=== PATIENT | male | born 1960 | race Caucasian/White ===

== ENCOUNTER → 2017-12-04 | Outpatient (CLI) | payer OTHER ==
[~2017-12-04] MED LIST: AMOXICILLIN 50500 MG PO; CENTRUM SILVER1 EAC4 PO; CLARITIN10 MG PO; CLONAZEPAM 1 MG1 M1 PO; DEXAMETHASONE 22 M1 PO; DEXAMETHASONE 44 M1 PO; DEXAMETHASONE1 MG PO; FLONASE 0.05%50 MCG NASAL; GUAIFEN-CODEINE10 ML PO; KEPPRA 500 MG500 M1 PO; LASIX 20 MG TAB20 MG PO; MILK OF MA2400 MG/10 PO; MIRALAX17 GM PO; MOBIC15 MG PO; NAPROSYN500 MG PO; NEURONTIN 300300 M1 PO; NORCO 5-325 TA1 EACH PO; OXYCODONE HCL 55 MG PO; PERCOCET 10-321 EACH PO; SENOKOT-S TABL1 EACH PO; SYNTHROID100 MCG PO; TYLENOL EXTRA500 MG PO; VALIUM5 MG PO; ZANTAC 150MG T150 MG PO; ZOFRAN ODT4 MG DISSOLVE
== END ==
LOC: RAD 10:19
DX: M47.896 Other spondylosis, lumbar region (principal)

== ENCOUNTER → 2017-12-07 | Outpatient (CLI) | payer OTHER | LOC: MRI 11-06 10:47 → CAT 11:23 | DX: E04.1 Nontoxic single thyroid nodule (principal); M47.894 Other spondylosis, thoracic region ==

== ENCOUNTER 2017-12-28 11:34 | Inpatient (IN) | payer OTHER ==
[~2017-12-28] VITALS: Ht 175.3 cm; Wt 92.9 kg
--- NOTE | ~2017-12-28 | HC ---
[facility] [place] [address] CONSULTATION Name: ROSEMARY BUNDY Room #: 441-P [facility] IN M.R.#: [id number] Admission: 12/28/17 Attend Phys: Ed Kendrick MD Discharge: 12/29/17 Date of : 60 Report #: [id number] THIS REPORT FOR: //name// CC: Cecily Kendrick MD REASON FOR CONSULTATION: Abnormal scans with adenocarcinoma from a biopsy and a PSA of 0.4, but PSA weakly positive biopsy material. 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 He evidently had been feeling poorly since August and had a CAT scan on 12/07/2017 that showed extensive lymph nodes in the infra-carinal and bilateral hilar regions, liver masses and also extensive bony masses. The patient underwent a left iliac bone lesion biopsy on 12/11/2017, which revealed a moderately differentiated adenocarcinoma that was weakly positive for PSA and PSAP. The tumor was also negative for TTF1 and the comment was made that it is suggestive of a prosthetic origin and making lung cancer less likely. There was also positive CK-20, which is also seen in GI tract tumors. Reportedly, the patient had a colonoscopy about 16 months ago with removal of benign masses by Dr. Hendricks. We will try to get copies of these. REVIEW OF SYSTEMS: The patient has been having some various pains since about 08/2017. He has about a 30-pound unintentional weight loss. Negative headache. Swallowing troubles, thinking troubles, abdominal pain, bleeding in his urine or stool or rash. It does not look like he has had some diarrhea, but it sounds like he had some constipation and then had loose stools after that. FAMILY MEDICAL HISTORY: Mother had breast cancer in her 60s. Father from Parkinson's. One brother and one sister, no specific illnesses. One son with autism. SOCIAL HISTORY: He lives with his on the [facility], they are . The patient is a nonsmoker, had drank somewhat maybe a little bit heavy alcohol in the past, just occasional recently. No street drugs. PAST MEDICAL HISTORY: Past history is notable for right knee and foot surgery in the past. Also, thyroid surgery in the past and hypothyroidism. MEDICATIONS PRIOR TO ADMISSION: Included clonazepam, levothyroxine, diazepam and hydrocodone. LABORATORY DATA: CAT scan on 12/07/2017 was notable for their description of no evidence of cervical adenopathy. The left lower lobe is probably compared to the right, extensive infra-carinal and bilateral hilar adenopathy with metastatic malignant mass was present in the right lower lobe. Left lung does [address] [address] CONSULTATION Name: ROSEMARY BUNDY Room #: 441-P DIS IN M.R.#: [id number] Admission: 12/28/17 Attend Phys: Ed Kendrick MD Discharge: 12/29/17 Date of : 60 Report #: [id number] not show any disease. No significant pleural fluid. Numerous hepatic metastasis throughout the right lobe of the liver, extensive bony masses involving the right inferior pubic ramus and left and right iliac crest regions, consistent with bone metastasis. Lab test notable for a BUN of 19, creatinine of 0.9. Total bilirubin 0.6, calcium 12.3, alkaline phosphatase 144 and ALT 14. Albumin 2.3. Coags back in November were normal, including PT and aPTT. WBC 10.2, hemoglobin 10.5 with an MCV of 79.9, RDW 15.3 and platelets of 349,000. Ferritin and iron studies are pending. PSA drawn on 12/28/2017 was 0.4. ASSESSMENT AND PLAN: 1. Adenocarcinoma from a bone biopsy with a weakly positive PS staining and CT showing multiple bone metastasis, but also liver metastasis, with a PSA of 0.4. This seems to represent a poorly differentiated possible prostate cancer. We will talk to pathology. May consider liver biopsy for non-decalcified type tissue to see him and get a better management to make sure this is not a neuroendocrine differentiation given the severe low PSA, but then also liver mets and may need to consider chemotherapy instead of antihormone therapy. We will get additional information. We will also try to get information from Dr. Hendricks to make sure there is no concern about a colonic primary. 2. Hypercalcemia. We will give Zometa 4 mg and increase IV fluids at 200 mL an hour. We will follow serial calciums. We will also place O2 sat monitor. 3. Mental status changes, likely hypercalcemia. We will also check MRI of the head. 4. Anemia with microcytosis. Check iron and ferritin levels and get records from Dr. Hendricks. 5. History of colonoscopy with masses removed, reported benign, but we will get reports from Dr. Hendricks. We will follow with you. <ELECTRONICALLY SIGNED> By: Ariel Estrada MD 12/29/171999 0915 1028 Ariel Estrada MD /nt
[~2017-12-28 11:34] MED LIST changes: -CENTRUM SILVER1 EAC4 PO; -CLARITIN10 MG PO; -DEXAMETHASONE 22 M1 PO; -DEXAMETHASONE 44 M1 PO; -DEXAMETHASONE1 MG PO; -FLONASE 0.05%50 MCG NASAL; -KEPPRA 500 MG500 M1 PO; -LASIX 20 MG TAB20 MG PO; -MILK OF MA2400 MG/10 PO; -MIRALAX17 GM PO; -NEURONTIN 300300 M1 PO; -OXYCODONE HCL 55 MG PO; -PERCOCET 10-321 EACH PO; -SENOKOT-S TABL1 EACH PO; -TYLENOL EXTRA500 MG PO; -ZANTAC 150MG T150 MG PO; -ZOFRAN ODT4 MG DISSOLVE
[2017-12-28 12:05] VITALS: BP 124/72
[2017-12-28 12:40] LABS: HEMOGLOBIN 10.5 gm/dL (14.0-18.0); MCH 25.5 pg (26.0-34.0); MCHC 31.9 g/dL (28.0-37.0); MCV 79.9 fL (80.0-100.0); RBC 4.13 mil/uL (4.50-6.00); RDW 15.3 % (10.5-14.5); WBC 10.2 thou/uL (4.0-11.0)
[2017-12-28 12:52] LABS: ALBUMIN 2.3 g/dL (3.4-5.0); CREATININE 0.9 mg/dL (0.7-1.3); POTASSIUM 3.5 mmol/L (3.5-5.1); TOTAL BILIRUBIN 0.6 mg/dL (<0.1-1.0); TOTAL PROTEIN 7.6 g/dL (6.4-8.2)
[2017-12-28 13:00] LABS: CALCIUM 12.3 mg/dL (8.5-10.1)
[2017-12-28 16:00] VITALS: BP 109/54
[2017-12-28 19:54] VITALS: BP 108/55
[2017-12-29 00:52] VITALS: BP 126/64
[2017-12-29 03:48] VITALS: BP 117/65
[2017-12-29 08:01] VITALS: BP 122/72
[2017-12-29 09:15] LABS: HEMATOCRIT 31.3 % (42.0-52.0); HEMOGLOBIN 10.1 gm/dL (14.0-18.0); MCH 25.7 pg (26.0-34.0); MCHC 32.2 g/dL (28.0-37.0); MCV 79.7 fL (80.0-100.0); RBC 3.93 mil/uL (4.50-6.00); RDW 15.5 % (10.5-14.5); WBC 8.2 thou/uL (4.0-11.0)
[2017-12-29 09:26] LABS: CALCIUM 10.7 mg/dL (8.5-10.1); CREATININE 0.8 mg/dL (0.7-1.3)
[2017-12-29 09:31] LABS: % SATURATION 13 % (20-39); IRON 20 ug/dL (65-175); TIBC 149 ug/dL (250-450)
== END 2017-12-29 16:30 | disposition short-term general hospital (02) | DRG 543 ==
LOC: 4S 11:34 → 4E 11:34 → 4S 11:57
PROVIDERS: Family Medicine; Internal Medicine Hematology & Oncology
DX: C41.9 Malignant neoplasm of bone and articular cartilage, unspecified (principal); N17.9 Acute kidney failure, unspecified; C78.7 Secondary malignant neoplasm of liver and intrahepatic bile duct; C79.82 Secondary malignant neoplasm of genital organs; E83.52 Hypercalcemia; D50.9 Iron deficiency anemia, unspecified; E03.9 Hypothyroidism, unspecified; F41.9 Anxiety disorder, unspecified; F32.9 Major depressive disorder, single episode, unspecified; Z80.3 Family history of malignant neoplasm of breast; Z81.8 Family history of other mental and behavioral disorders; Z79.899 Other long term (current) drug therapy
CPT/HCPCS: 10102

== ENCOUNTER 2018-01-13 14:58 | Inpatient (IN) | payer OTHER ==
[~2018-01-13] VITALS: Ht 175.3 cm; Wt 84.1 kg
--- NOTE | ~2018-01-13 | HC ---
[facility] [place] [address] CONSULTATION Name: ROSEMARY BUNDY Room #: 506-1 ADM IN M.R.#: [id number] Admission: 01/13/18 Attend Phys: Vasiliy Arzate MD Discharge: Date of : 60 Report #: [id number] THIS REPORT FOR: //name// CC: Vasiliy Kendrick DATE OF SERVICE: 01/16/2018 NEUROBEHAVIORAL STATUS EXAM ATTENDING PHYSICIAN: Vasiliy Arzate M.D. LOOPING MACHINE OPERATOR: Ed Bah, PhD CLINICAL PRESENTATION: The patient is a 57-year-old male admitted to the [facility] Rehabilitation Unit for comprehensive inpatient rehabilitation program to improve functional mobility, activities of daily living and self-care and mental status secondary to deficits from a metastatic intracranial hemorrhagic lesion. He is status post craniotomy with a right parietal resection on 01/08/2018. He was found to have multiple brain lesions. His initial assessment on rehab includes gait ataxia secondary to central nervous system lesion, cognitive impairment, acute postoperative pain, hypothyroidism, liver, colon and prostate masses and metastatic carcinoma to the bone. A complete description of his medical condition and history can be found in his medical record. Neuropsychological consultation was requested to assist in assessment of cognitive and emotional status and to provide recommendations and services. Prior to this most recent medical event, he reports living with the assistance of his family. He has been living with his mother and have a brother and sister that live nearby. The patient is with one child. The child lives in [place] with his ex-. The patient has a master's degree in education. 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 TECHNIQUES UTILIZED: Clinical interview, review of medical records, staff consultation and behavioral observation, mini mental status exam 2 standard version, and calibrated ideational fluency assessment (letter and category) and brief abstract reasoning test. EXAMINATION FINDINGS: The patient was alert and cooperative with the assessment. He presents with decreased processing speed, but was able to describe recent events leading to his hospitalization. He reports symptoms to include difficulty with memory and word finding. Longstanding symptoms of anxiety are reported. He reports having been treated for generalized anxiety disorder with the use of clonazepam. Past counseling is also reported. He does [address] [address] CONSULTATION Name: ROSEMARY BUNDY Room #: 506-1 [facility] IN M.R.#: [id number] Admission: 01/13/18 Attend Phys: Vasiliy Arzate MD Discharge: Date of : 60 Report #: [id number] not report difficulty with sleep, appetite or subjective depression. Difficulty with word retrieval is also described. His performance on the MMSE 2 brief version was extremely low with a raw score of 12/16 and a T score of 20. He was 3/3 for initial registration, 3/5 for orientation to time, 4/[address] and 2/3 for immediate recall of 3 items after a brief time delay and distraction. His performance improved on the MMSE 2 standard version to a raw score of 26/30, which is a T score of 38, which is at the 12th percentile. Mild impairment is suggested in general based on his performance on the MMSE 2 standard version. Performance in verbal fluency suggest deficits that are in the moderate to severe range. Letter fluency was at the 4th percentile with a raw score of 16 and a T score of 32. Mild to moderate deficits are suggested in letter fluency. Category fluency is extremely low with a raw score of 22 and a T score of 20, which is less than 1%. Overall, total fluency is raw score of 38, T score of 23 and percentile rank of less than 1. The patient was 7/8 on a brief abstract reasoning test. He presents with delayed processing and variability in cognitive functioning with impairment in executive functioning and decreased insight. For example, during a clock drawing test, the patient used a combination of and regular time for numbers and had difficulty with hand placement. His performance on the assessment suggests moderate deficits in neurocognitive functioning. Deficits will affect immediate recall, attention and concentration and executive functioning. 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 Generalized anxiety disorder. RECOMMENDATIONS: Continued support and encouragement during his rehabilitation program. He may benefit from the use of a memory/orientation notebook to assist in compensation strategies for orientation, immediate recall and higher level planning and problem solving. The use of relaxation techniques will also be of benefit to assist in the management of anxiety. 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 The patient will likely require at least a short-term disability prior to return to employment. Follow up neuropsychological testing is recommended following discharge. [address] [address] CONSULTATION Name: ROSEMARY BUNDY Room #: 506-1 ADM IN M.R.#: [id number] Admission: 01/13/18 Attend Phys: Vasiliy Arzate MD Discharge: Date of : 60 Report #: [id number] Thank you very much for allowing me to provide the consultation on this patient. <ELECTRONICALLY SIGNED> By: Ed Bah, PhD 01/18/18 1824 1459 1855 Ed Bah, PhD /nt
--- NOTE | ~2018-01-13 | H ---
[facility] [place] [place] [address] HISTORY AND PHYSICAL Name: ROSEMARY BUNDY Room #: 506-1 ADM IN M.R.#: [id number] Admission: 01/13/18 Attend Phys: Ana Arzate MD Discharge: Date of : 60 Report #: [id number] THIS REPORT FOR: //name// CC: ANA Kendrick DATE OF SERVICE: 01/14/2018 Note, I am covering for Dr. Ana Arzate and therefore, completing this history and physical for him. ADMITTING PHYSICIAN: Dr. Ana Arzate. CHIEF COMPLAINT: Mobility and self-care deficits due to hemorrhagic intracranial metastases. REFERRING PHYSICIAN: Dr. Kadeem Mendoza. PRIMARY CARE PHYSICIAN: Dr. Ed Kendrick. HISTORY OF PRESENT ILLNESS: The patient is a very pleasant 57-year-old right hand dominant male with a history of colon masses, status post resection who was transferred to the [facility] for evaluation of diffuse metastatic lesions. Neurosurgery was consulted to address metastatic intracranial lesions. The patient had a history of bone pain and mild gait unsteadiness, which started in July 2017. A workup in November 2017 revealed extensive hilar adenopathy and bony lesions concerning for metastasis. A CT-guided biopsy was done, which showed moderately differentiated carcinoma weakly positive for PSA. The patient was seen by his oncologist on 12/28/2017 and admitted for back pain and further workup. An MRI was done, which was concerning for multiple brain metastases, most notably in the right parietal lobe and right cerebellum with associated vasogenic edema and hemorrhage. He underwent surgical treatment at the [facility]. He will need to follow up with Dr. Burton in approximately 2 weeks according to their notes. In addition to the above diagnoses, he has lung metastasis, multiple intrahepatic metastasis and multiple bony metastases. The primary ____ is unclear. It is felt to be possibly prostate versus GI versus lung according to records. There is concern for possible palliative radiation and XRT of the spine lesions following Neurosurgery. This has not been planned as of yet. He is on Decadron and Keppra. [address] [address] HISTORY AND PHYSICAL Name: ROSEMARY BUNDY Room #: 506-1 ADM IN M.R.#: [id number] Admission: 01/13/18 Attend Phys: Ana Arzate MD Discharge: Date of : 60 Report #: [id number] Additional issues postoperatively include hypercalcemia, which resolved; anemia of chronic disease, history of an anal mass and ulcer, status post resection is also noted. Due to problems with weakness and pain as well as impaired mobility, it was determined that an inpatient rehabilitation stay would be needed. He was therefore transferred to rehabilitation unit at [facility] for further medical oversight and comprehensive therapies. PAST MEDICAL HISTORY: As above, also pertinent for acute blood loss anemia, impaired cognition, hypothyroidism and constipation. 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 He lives in a house with 1-2 steps to enter and exit. He states that his mother is there to assist him. FUNCTIONAL HISTORY: Prior to admission, he states that he was walking with a rolling walker following a fall that he had. He states that he still drives. FAMILY HISTORY: Positive for breast cancer in his mother and Parkinson's in his father. PAST SURGICAL HISTORY: Knee surgery and thyroid surgery. REVIEW OF SYSTEMS: He denies chest pain, shortness of breath, fevers, chills, lymphadenopathy, skin rashes, vision changes, hearing difficulties, difficulties with sense of smell, difficulty with swallowing, difficulty with communicating. There is a note about cognitive impairment, which he does not admit to. Otherwise, the remainder of a 14-point review of systems is negative except for what was stated above. PHYSICAL EXAMINATION: GENERAL: In no acute distress, well developed, well nourished, afebrile. He was sitting up at the edge of the bed with his therapist when I entered the room. VITAL SIGNS: Stable. CARDIOVASCULAR: S1, S2. LUNGS: Clear to auscultation. ABDOMEN: Soft, nontender, nondistended, positive bowel sounds. EXTREMITIES: Calves are nontender. LYMPHATICS: No cervical adenopathy. MUSCULOSKELETAL: Functionally, he has 4+/5 strength in all 4 extremities with full range of motion. Tone within normal limits. No muscle atrophy identified. NEUROLOGIC: Coordination is fair. Muscle stretch reflexes are 1/4 and symmetric. He has impaired safety awareness. Balance is fair and he is [facility] [address] [place] [address] HISTORY AND PHYSICAL Name: ROSEMARY BUNDY Room #: 506-1 ADM IN M.R.#: [id number] Admission: 01/13/18 Attend Phys: Ana Arzate MD Discharge: Date of : 60 Report #: [id number] unsteady with provocation. PSYCHIATRIC: He is pleasant and cooperative with the examination. Cognition appears to be impaired. IMPRESSION: Mobility and self-care deficits in a 57-year-old right hand dominant male secondary to: 1. Metastatic intracranial hemorrhagic lesion, status post craniotomy at the [facility], multiple brain lesions, right parietal craniotomy resection on 01/08/2018. 2. Gait ataxia secondary to central nervous system lesion, currently at a moderate assist level. 3. Cognitive impairment due to intracranial lesions. 4. Acute postoperative pain. 5. Hypothyroidism. 6. Liver, colon and prostate masses. 7. Metastatic carcinoma to bone. PLAN: 1. Admit to the rehabilitation unit for comprehensive therapies. 2. Discussed the rehabilitation program in detail with him and his therapy team and all are in agreement for rehabilitation admission. 3. Consultation to hospitalist for medical management. 4. Consultation with Ed Bah, PhD for neuropsychology due to cognitive impairments and coping issues. 5. Physical therapy, occupational therapy and speech therapy. 6. Please see the plan of care and post-admission physician evaluation for further details of rehabilitation care plan. 7. A post-admission physician evaluation has been completed. The patient's preadmission screening was reviewed in its entirety by this examiner. Current clinical status is supported by the information contained within. The patient is an appropriate candidate to undergo a comprehensive inpatient rehabilitation program consisting of daily physical therapy, occupational therapy and speech therapy 3 hours a day for at least 5 days a week. Furthermore, nothing has changed since the preadmission screen was completed to suggest that the patient would not be able to tolerate or benefit from the rehabilitation program. It is my opinion that inpatient rehabilitation rather than care home is a more appropriate setting for the patient due to multiple medical needs requiring comprehensive followup care. The patient is at risk of clinical complications during participation in rehabilitation due to the following adverse medical conditions. 1. Metastatic carcinoma to bone. 2. Intracranial hemorrhagic lesions, status post craniotomy. 3. Risk for seizures. 4. Carcinoma of the lung and prostate. 5. My plan to manage these conditions, which could impact his ability to [facility] [address] [place] [address] HISTORY AND PHYSICAL Name: ROSEMARY BUNDY Room #: 506-1 ADM IN M.R.#: [id number] Admission: 01/13/18 Attend Phys: Ana Arzate MD Discharge: Date of : 60 Report #: [id number] participate in rehabilitation, to consult internal medicine and neuropsychology to closely monitor him during his rehabilitation course. INDIVIDUAL OVERALL PLAN OF CARE: Summarization of findings, the patient is receiving inpatient rehabilitation due to the following functional impairments: 1. Ataxia. 2. Cognitive impairment. 3. Hemorrhagic intracranial metastasis, status post parietal craniotomy. 4. Impaired endurance and ADLs. Identified interventions include physical therapy, occupational therapy and speech therapy to address mobility, self-care deficits, communication, cognitive and swallowing impairments. Physical medicine and rehabilitation will provide management of this rehabilitation care plan. Internal medicine will provide care for multiple medical issues. Neuropsychology will evaluate for cognitive impairments and coping. Rehabilitation nursing care will be available 24 hours a day for care needs and social welfare administrator will be helpful for discharge planning and medical equipment needs. Dietitian consultation for nutritional purposes will be needed. Estimated length of stay is approximately 10-14 days. Anticipated functional outcome is modified independent with mobility and self-care skills. This is a realistic goal based on his previous level of function and progress thus far in therapies. ANTICIPATED DISCHARGE DESTINATION: Home with his mother. He will likely need home health services at that time. Medical prognosis is fair. He will continue to receive internal medicine followup. Anticipated therapies, physical therapy, occupational therapy and speech therapy 3 hours a day 5 days a week for an anticipated duration of 10-14 days. SUMMARIZATION OF TREATMENT PLAN: He will continue to receive an inpatient rehabilitation program as outlined above in an effort to improve his overall function and return home at a modified independent level within 10-14 days. <ELECTRONICALLY SIGNED> By: Amandeep Germain DO 01/14/18 1714 0937 1016 Amandeep Germain DO /nt
[2018-01-13] MEDS ORDERED: DEXAMETHASONE 44 M1 PO (15:39)
[2018-01-13] MEDS ORDERED: DEXAMETHASONE 22 M1 PO (15:42)
[2018-01-13] MEDS ORDERED: DEXAMETHASONE1 MG PO (15:44)
[2018-01-13] MEDS ORDERED: KEPPRA 500 MG500 M1 PO (15:45)
[2018-01-13] MEDS ORDERED: MILK OF MA2400 MG/10 PO (15:46)
[2018-01-13] MEDS ORDERED: SENOKOT-S TABL1 EACH PO (15:48)
[2018-01-13] MEDS ORDERED: PERCOCET 10-321 EACH PO (15:50)
[2018-01-13] MEDS ORDERED: FLONASE 0.05%50 MCG NASAL (15:51)
[2018-01-13] MEDS ORDERED: CENTRUM SILVER1 EAC4 PO (15:53)
[2018-01-13] MEDS ORDERED: CLARITIN10 MG PO (15:55)
[2018-01-13] MEDS ORDERED: ZANTAC 150MG T150 MG PO (15:57)
[2018-01-13 17:00] VITALS: BP 98/58
[2018-01-13 19:20] VITALS: BP 103/58
[2018-01-14 07:20] LABS: HEMATOCRIT 34.5 % (42.0-52.0); HEMOGLOBIN 10.8 gm/dL (14.0-18.0); MCH 24.9 pg (26.0-34.0); MCHC 31.4 g/dL (28.0-37.0); MCV 79.2 fL (80.0-100.0); RBC 4.35 mil/uL (4.50-6.00); WBC 12.3 thou/uL (4.0-11.0)
[2018-01-14 07:35] LABS: CREATININE 0.7 mg/dL (0.7-1.3); POTASSIUM 3.8 mmol/L (3.5-5.1)
[2018-01-14 08:00] VITALS: BP 104/61
[2018-01-14 19:52] VITALS: BP 103/66
[2018-01-15 10:15] VITALS: BP 109/58
[2018-01-15 19:51] VITALS: BP 103/52
[2018-01-16 08:30] VITALS: BP 93/58
[2018-01-16 19:20] VITALS: BP 101/64
[2018-01-17 10:13] VITALS: BP 104/47
[2018-01-17 19:15] VITALS: BP 113/69
[2018-01-18 07:25] VITALS: BP 109/61
[2018-01-18 19:59] VITALS: BP 113/56
[2018-01-19 07:17] VITALS: BP 110/67
[2018-01-19 19:45] VITALS: BP 110/61
[2018-01-20 08:09] VITALS: BP 99/60
[2018-01-20 19:30] VITALS: BP 104/63
[2018-01-21 07:45] VITALS: BP 105/55
[2018-01-21 20:04] VITALS: BP 99/53
[2018-01-21 20:45] VITALS: BP 115/62
[2018-01-22 07:55] VITALS: BP 96/54
[2018-01-22 20:02] VITALS: BP 100/54
[2018-01-23 08:26] VITALS: BP 99/60
[2018-01-23 19:58] VITALS: BP 97/59
[2018-01-24 07:29] VITALS: BP 100/55
[2018-01-24 19:50] VITALS: BP 102/58
[2018-01-25 07:30] VITALS: BP 103/58
[2018-01-25 15:56] VITALS: BP 103/58
[2018-01-25 19:15] VITALS: BP 97/59
[2018-01-26 07:28] VITALS: BP 104/65
[2018-01-26] MEDS ORDERED: KEPPRA 500 MG500 M1 PO (08:05)
[2018-01-26 10:37] VITALS: BP 103/58
== END 2018-01-26 14:43 | disposition home health service (06) | DRG 55 ==
PROVIDERS: Physical Medicine & Rehabilitation
DX: C79.31 Secondary malignant neoplasm of brain (principal); C79.51 Secondary malignant neoplasm of bone; C78.00 Secondary malignant neoplasm of unspecified lung; C78.7 Secondary malignant neoplasm of liver and intrahepatic bile duct; C78.5 Secondary malignant neoplasm of large intestine and rectum; C79.82 Secondary malignant neoplasm of genital organs; D62 Acute posthemorrhagic anemia; R27.0 Ataxia, unspecified; F41.1 Generalized anxiety disorder; R41.9 Unspecified symptoms and signs involving cognitive functions and awareness; D63.8 Anemia in other chronic diseases classified elsewhere; K59.00 Constipation, unspecified; G89.18 Other acute postprocedural pain; F32.9 Major depressive disorder, single episode, unspecified; E89.0 Postprocedural hypothyroidism; R53.81 Other malaise; Z82.0 Family history of epilepsy and other diseases of the nervous system; Z80.3 Family history of malignant neoplasm of breast
CPT/HCPCS: 10112

== ENCOUNTER 2018-02-23 11:57 | Emergency (ER) | payer OTHER ==
[~2018-02-23] VITALS: Ht 172.7 cm; Wt 81.7 kg
--- NOTE | ~2018-02-23 | EKG ---
[place] [address] [facility] [place] [address] ELECTROCARDIOGRAM REPORT Name: ROSEMARY BUNDY Room #: DEP HOWARD Cutler#: [id number] Admission: 02/23/18 Attend Phys: Discharge: 02/23/18 Date of : 60 Report #: [id number] THIS REPORT FOR: //name// [facility] ED Test Date: 2018-02-23 Test Time: 13:31:50 Pat Name: ROSEMARY BUNDY Department: Room: Gender: M Risk Management Consultant: JENSENIA : 1960 Requested By: Julian Mansfield Order Number: [id number] MD: Dameon Shultz Measurements Intervals [place] Rate: 102 P: 61 WA: 179 QRS: 41 QRSD: 94 T: 27 QT: 335 QTc: 437 Interpretive Statements Sinus tachycardia Otherwise no significant abnormality No previous ECG available for comparison Electronically Signed On 02-24-2018 8:40:04 CDT by Dameon Shultz [email or web address] <ELECTRONICALLY SIGNED> By: Dameon Shultz MD, [facility] 02/24/18 0840 1331 1331 Dameon Shultz MD, FACC /EPI
[~2018-02-23 11:57] MED LIST changes: +CENTRUM SILVER1 EAC4 PO; +CLARITIN10 MG PO; +DEXAMETHASONE 22 M1 PO; +DEXAMETHASONE 44 M1 PO; +DEXAMETHASONE1 MG PO; +FLONASE 0.05%50 MCG NASAL; +KEPPRA 500 MG500 M1 PO; +MILK OF MA2400 MG/10 PO; +PERCOCET 10-321 EACH PO; +SENOKOT-S TABL1 EACH PO; +ZANTAC 150MG T150 MG PO
[2018-02-23 12:01] VITALS: BP 103/69
[2018-02-23 12:41] LABS: CREATININE 0.6 mg/dL (0.7-1.3); POTASSIUM 4.9 mmol/L (3.5-5.1)
[2018-02-23 13:27] LABS: APTT 22.2 Seconds (24.5-32.8); INR 1.2; PROTIME 11.8 Seconds (9.3-11.4)
[2018-02-23 14:12] VITALS: BP 103/69
[2018-02-23 14:17] LABS: URINE BLOOD NEGATIVE (Negative); URINE CLARITY CLEAR; URINE COLOR YELLOW; URINE GLUCOSE-RANDOM* NEGATIVE (Negative); URINE KETONES TRACE (Negative); URINE LEUKOCYTES-REFLEX NEGATIVE (Negative); URINE NITRITE-REFLEX NEGATIVE (Negative); URINE PROTEIN (DIPSTICK) NEGATIVE (Negative); URINE SPECIFIC GRAVITY >= 1.030 (1.005-1.035); URINE UROBILINOGEN 0.2 E.U./dl (0.2-1.0)
[2018-02-23 14:20] LABS: ICTOTEST (BILI CONFIRMATORY) Negative (Negative); URINE BILIRUBIN NEGATIVE (Negative)
[2018-02-23 14:35] LABS: ABSOLUTE NEUTROPHILS 10.9 thou/uL (1.4-8.2); BASOPHILS 0.7 % (0.0-2.0); HEMATOCRIT 30.3 % (42.0-52.0); HEMOGLOBIN 9.6 gm/dL (14.0-18.0); LYMPHOCYTES 4.1 % (24.0-44.0); MCH 25.2 pg (26.0-34.0); MCHC 31.9 g/dL (28.0-37.0); MCV 79.2 fL (80.0-100.0); MONOCYTES 8.8 % (1.0-8.0); PLATELET COUNT 423 thou/uL (150-400); POLYS 86.4 % (36.0-66.0); RBC 3.82 mil/uL (4.50-6.00); RDW 19.9 % (10.5-14.5); WBC 12.6 thou/uL (4.0-11.0)
[2018-02-23 16:32] LABS: MICROCYTES 2+; POLYCHROMASIA 1+; SCHISTOCYTES OCCASIONAL; TEARDROPS 1+
[2018-02-23 17:00] VITALS: BP 111/65
== END 2018-02-23 17:00 | disposition short-term general hospital (02) ==
LOC: ER 11:57 → EROBS 14:03
PROVIDERS: Physician Assistant
DX: S72.8X2A Other fracture of left femur, initial encounter for closed fracture (principal); C64.9 Malignant neoplasm of unspecified kidney, except renal pelvis; C79.31 Secondary malignant neoplasm of brain; E03.9 Hypothyroidism, unspecified; F41.9 Anxiety disorder, unspecified; F32.9 Major depressive disorder, single episode, unspecified; W18.39XA Other fall on same level, initial encounter; Y93.89 Activity, other specified; Y92.89 Other specified places as the place of occurrence of the external cause; Y99.8 Other external cause status

== ENCOUNTER 2018-03-23 19:53 | Inpatient (IN) | payer OTHER ==
[~2018-03-23] VITALS: Ht 177.8 cm; Wt 76.7 kg
--- NOTE | ~2018-03-23 | HC ---
[facility] [place] [address] CONSULTATION Name: ROSEMARY BUNDY Room #: 451-P ADM IN M.R.#: [id number] Admission: 03/23/18 Attend Phys: Vasiliy Colunga MD Discharge: Date of : 60 Report #: [id number] THIS REPORT FOR: //name// CC: Lenny Vazquez MD REASON FOR CONSULTATION: Metastatic renal cell. HISTORY OF PRESENT ILLNESS: The patient is a 58-year-old gentleman from the [place] area who was diagnosed with metastatic renal cancer after a bone biopsy on 12/11/2017. This was mostly consistent with metastatic kidney cancer. Unfortunately, he also had brain mets. He did have a craniotomy on 01/08/2018 with removal of a large lesion but there is still one that has not been treated. The patient was recently at a rehab facility trying to get stronger, but has had further decline. Here, he was noted to have a fairly stable CT of the head. He has also had a calcium of 11.3, albumin below 2. At this time, he denies fevers or chills. He describes a general malaise and tired feeling. He denies any nausea. He denies any constipation or diarrhea, any dysuria. He stated he had some leg swelling. He does not have good insight, appears to be a poor historian, but this may be related to his hypercalcemia. He is noted to have skin sores on his report, but he does not really seem to be that much aware of them. PAST MEDICAL HISTORY: Past history is notable for the metastatic kidney cancer diagnosed in November, status post craniotomy for the large lesion in 12/2017. He has a known other lesion that has not been treated. He had been seen by Dr. Lenny Mcrae who specializes in urologic Oncology. About 2 weeks ago, he did not think that the patient was strong enough to tolerate any aggressive or any therapy at this time. He had suggested hospice. The patient also has a history of hypothyroidism, hemorrhoids, sleep disorder. PAST MEDICAL HISTORY: He has a history of tonsillectomy, appendectomy, thyroidectomy. SOCIAL HISTORY: He is , nonsmoker, drank some alcohol in the past. No street drugs. MEDICATIONS: At this time in the hospital currently include levothyroxine 100 mcg daily, levetiracetam 500 mg b.i.d., Lovenox 40 mg at bedtime, gabapentin 300 t.i.d., levofloxacin daily, Percocet p.r.n., Zofran p.r.n., Tylenol p.r.n. He did get a dose of Zometa yesterday. PHYSICAL EXAMINATION: GENERAL: The patient appears his stated age. [address] [address] CONSULTATION Name: ROSEMARY BUNDY Room #: 451-P [facility] IN M.R.#: [id number] Admission: 03/23/18 Attend Phys: Vasiliy Colunga MD Discharge: Date of : 60 Report #: [id number] VITAL SIGNS: Height is 5 feet 10 inches, which is 177.8 cm. Weight is 169 pounds or 76.7 kilograms. Blood pressure is 80/48, respirations 20, O2 sat 95%, pulse 88, temperature currently 97.5, it had been 100.2. MOOD: The patient is pleasant and conversant. NEUROLOGIC: Face appears symmetrical, though his speech and thought pattern appear to be slow. He is moving his arms. LYMPHATICS: No enlarged lymph nodes in the supraclavicular, cervical, or axillary region. HEART: Regular rate. LUNGS: Anteriorly is clear with symmetric unlabored respiration. ABDOMEN: Slightly obese. No definite masses, nontender. EXTREMITIES: He does have some 1-2 mm edema at the mid casper. Right leg is also slightly larger than the left. LABORATORY DATA: Here show a BUN of 17, creatinine of 0.5, calcium yesterday was 11.3 before the Zometa. Alkaline phosphatase was 208, albumin 1.3. White count 11.7, hemoglobin 7.2, MCV 80, platelets are 273. UA was unremarkable. DISCUSSION: Discussed with the patient and also had a chance to call the patient's mother to discuss his situation. I think he has had further decline. I told I think it would be dangerous to fully anticoagulate the patient because of his DVT, because of his brain mets that has been untreated. I think it is reasonable to continue the Lovenox. I am not sure that it would be a walker idea for an IVC filter given the patient's overall generalized condition that they wished we could. I think it would be appropriate to consider hospice. They have had discussions but she had more questions. I have suggested that she call her daughter and asked them to call Jonnie, the patient's nurse and see what time they can come up and visit with the social work faculty member today. ASSESSMENT AND PLAN: 1. Metastatic kidney cancer with CT chest suggesting some progression. The patient as aforementioned is too weak to consider active therapy, would suggest consideration of hospice as my partner had suggested. 2. Hypercalcemia. Note, the patient received Zometa yesterday. We will repeat calcium today. 3. Brain mets, untreated, could bleed if given anticoagulation. 4. Right leg DVT. I would be concerned about full-dose anticoagulation, could consider IVC filter, but given question about direction of care and for considering hospice, I probably would not put the patient through the procedure. The patient's mother made that same comment. 5. Anemia, stable. Continue monitoring. 6. Fever. The patient is on levofloxacin. 7. Skin ulceration, has been seen by wound care management. I would use gentle debridement, I want to be careful given the patient's right DVT. 8. Pain. Continue pain medications as needed. 9. Seizure prophylaxis, levetiracetam. [facility] [address] [place] [address] CONSULTATION Name: ROSEMARY BUNDY Room #: 451-P ADM IN M.R.#: [id number] Admission: 03/23/18 Attend Phys: Vasiliy Colunga MD Discharge: Date of : 60 Report #: [id number] 10. Hypothyroid, continues replacement. 11. Prognosis is very poor. The patient probably still has between 1 and 2 months left. I am aware that he is going to begin spiraling fairly quickly given his general debility and spending more time in bed. <ELECTRONICALLY SIGNED> By: Ariel Estrada MD 03/26/18 0707 [id number] Ariel Estrada MD /nt
--- NOTE | ~2018-03-23 | HC ---
[facility] [place] [address] CONSULTATION Name: ROSEMARY BUNDY Room #: 451-P [facility] IN M.R.#: [id number] Admission: 03/23/18 Attend Phys: Vasiliy Colunga MD Discharge: 03/26/18 Date of : 60 Report #: [id number] THIS REPORT FOR: //name// CC: Vasiliy Colunga DATE OF SERVICE: 03/24/2018 CHIEF COMPLAINT: Sacral pressure ulceration. HISTORY OF PRESENT ILLNESS: This is a 58-year-old white male patient who was admitted to the hospital with weakness. He has a history of metastatic renal cell carcinoma, was admitted from [facility] for weakness and hypotension. The patient apparently has had a recent pathological left femur fracture due to bony metastases and had open reduction and internal fixation approximately one month ago. He has had poor ability to comply with any rehab. He according to his admission notes from primary care, there apparently were no active plans for active treatment for his cancer. He has not opted for palliative care or hospice type care at this time. He was noted to have a pressure ulcer to his sacrum and I have been asked to see him with regard to ongoing wound care. PAST MEDICAL HISTORY: Positive for the metastatic renal cell carcinoma. He has had previous partial thyroidectomy, has anxiety and depression as well as the recent pathological left femur fracture. SOCIAL HISTORY: No known history of alcohol or tobacco use. ALLERGIES: None. MEDICATIONS: Include Synthroid, MiraLax, Neurontin, oxycodone, Tylenol, multivitamin, Claritin and Zantac. REVIEW OF SYSTEMS: CONSTITUTIONAL: The patient denies fever, chills or weight loss. NEUROLOGICAL: The patient complains of generalized weakness. Denies focal weakness, numbness or tingling. EYES: The patient denies visual changes, redness or drainage. ENT: The patient denies earache, nasal drainage or sore throat. CARDIOVASCULAR: The patient denies chest pain or palpitations, diaphoresis. PULMONARY: The patient denies cough or shortness of breath. GASTROINTESTINAL: The patient denies nausea, abdominal pain. ORTHOPEDIC: The patient complains of pain in his left leg. He denies pain in the sacral region. He is unaware that he has an ulcer there. Other systems in a 14-point review of systems are negative. PHYSICAL EXAMINATION: VITAL SIGNS: At this time include respiration of 20, blood pressure 95/56, [facility] [address] [place] [address] CONSULTATION Name: ROSEMARY BUNDY Room #: 451-P DIS IN M.R.#: [id number] Admission: 03/23/18 Attend Phys: Vasiliy Colunga MD Discharge: 03/26/18 Date of : 60 Report #: [id number] temperature 100.2, pulse 107. GENERAL: This is a chronically ill-appearing male patient who appears to be in minimal discomfort. He is a little bit slow in answering questions. HEAD: Normocephalic. NECK: Supple. LUNGS: Diminished. HEART: Regular rate and rhythm. ABDOMEN: Soft and nontender. EXTREMITIES: The pelvic region demonstrates an unstageable pressure ulceration to the sacral region. It is a little bit to the left of the midline. It is covered with a slightly moist eschar. There is slight odor. No tunneling or undermining is appreciated at this time. Examination of the extremities demonstrate incisions involving the anterior and lateral left knee as well as proximal portion of the anterior thigh. There are eduard in place. The incisions are intact without evidence of infection. There are deep tissue injuries at the base of the left fifth metatarsal, left lateral malleolus and the heel. Nothing is open. The right side is intact. Peripheral pulses are diminished, but palpable. NEUROLOGIC: The patient is alert. He does answer questions appropriately, although seems slow in his cognition. LABORATORY DATA: Includes sodium 137, potassium 3.7, chloride 105, CO2 of 27, BUN 17, creatinine 0.5, glucose 107. SGOT is 65, total bilirubin 0.4, direct bilirubin 0.2, calcium 11.3, magnesium is 2.3, alkaline phosphatase 208, SGPT 15, total protein 6.1, albumin 1.3. White blood cell count is 10.8 with hemoglobin of 7.5. CLINICAL IMPRESSION: 1. An unstageable pressure ulcer to the sacral region. 2. Severe protein-calorie malnutrition. 3. Metastatic renal cell carcinoma. 4. History of recent pathological fracture of the left femur, status post open reduction and internal fixation. 5. Deep tissue injuries to the left ankle, lateral foot and heel. RECOMMENDATIONS: At this point in time, I think the patient would likely require some debridement of the sacral ulceration. I am concerned with his currently low hemoglobin that bedside debridement may pose a risk for additional bleeding and the possibility of good hemostasis may be somewhat in question. I think that he would best be served with an operative debridement if he is medically stable and appropriate for such. If not, we will use topical Medihoney to soften the eschar and perhaps can gently debride it away once again with great care to avoid any significant bleeding. He will need aggressive nutritional support. He may be an appropriate candidate to consider some level of palliative care. We will place him on a low air loss mattress, recommend [address] [address] CONSULTATION Name: ROSEMARY BUNDY Room #: 451-P DIS IN M.R.#: [id number] Admission: 03/23/18 Attend Phys: Vasiliy Colunga MD Discharge: 03/26/18 Date of : 60 Report #: [id number] Prevalon boots to both lower extremities. He will need q. 2 hour turning and repositioning. I appreciate being asked to see him in consultation. <ELECTRONICALLY SIGNED> By: Lloyd Kramer MD 03/29/18 0818 [id number] Lloyd Kramer MD /nt
--- NOTE | ~2018-03-23 | H ---
[facility] [place] [address] HISTORY AND PHYSICAL Name: ROSEMARY BUNDY Room #: 451-P ADM IN M.R.#: [id number] Admission: 03/23/18 Attend Phys: Vasiliy Colunga MD Discharge: Date of : 60 Report #: [id number] THIS REPORT FOR: //name// CC: Vasiliy Colunga DATE OF SERVICE: 03/23/2018 CHIEF COMPLAINT: Weakness. HISTORY OF PRESENT ILLNESS: The patient is a 58-year-old gentleman with a history of metastatic renal cell carcinoma, is admitted to the Emergency Room from [facility] for weakness and hypotension. The nursing staff reported blood pressure of 86/39. He was just having general weakness. He has been attempting to perform skilled rehabilitation after a pathologic left femur fracture due to bony metastases. I believe he had an IM saleem placed approximately a month ago, and he has been attempting rehabilitation. However, the nursing staff said he has been very weak and really unable to put any weight on his left leg. He is basically requiring total care with transfers up to wheelchair. He has not been eating well. In reviewing [facility] records at the skilled facility, it appears that there were no plans for active treatment of his cancer at this point. There was some discussion of palliative care opinion, and I believe the last report from Oncology will see if his performance status would improve before considering any further treatment for his metastatic renal cell. PAST MEDICAL HISTORY: Anxiety, depression, pathologic left femur fracture. Metastatic renal cell carcinoma to the bone, had a remote partial thyroidectomy. PAST SURGICAL HISTORY: As above. FAMILY HISTORY: Noncontributory. SOCIAL HISTORY: He has been in the skilled facility for the last month or so. No known chronic alcohol or tobacco use. ALLERGIES: None. MEDICATIONS: Synthroid, MiraLax, Neurontin, oxycodone, Tylenol, multivitamin, Claritin, Zantac. REVIEW OF SYSTEMS: He denies shortness of breath, chest pain, palpitations, abdominal pain, nausea, vomiting, diarrhea, constipation, dysuria, syncope. He just generally complains of poor appetite, general weakness. OBJECTIVE: [facility] [address] [place] [address] HISTORY AND PHYSICAL Name: ROSEMARY BUNDY Room #: 451-P [facility] IN M.R.#: [id number] Admission: 03/23/18 Attend Phys: Vasiliy Colunga MD Discharge: Date of : 60 Report #: [id number] VITAL SIGNS: Temperature 36.7, pulse 97, respirations 18, blood pressure 91/53, O2 sat 94-97% on room air. GENERAL: He is awake and alert, in no distress. HEAD AND NECK: Unremarkable. LUNGS: Clear anteriorly. HEART: Regular. ABDOMEN: Soft, normoactive bowel sounds. EXTREMITIES: No edema. NEUROLOGIC: Motor strength 3/5 throughout. LABORATORY DATA: Urinalysis was negative. White count 10, hemoglobin 7.5, MCV 78, creatinine 0.5, calcium 11.3, albumin 1.3. Alkaline phosphatase was 208. Chest x-ray suggests patchy bilateral pulmonary opacities. ASSESSMENT: 1. Hypotension. 2. Malignant hypercalcemia. 3. Metastatic renal cell carcinoma. 4. Pulmonary infiltrates. 5. Anemia of chronic disease. 6. Severe protein-calorie malnutrition. 7. Pathologic fracture of left femur, status post intramedullary saleem. PLAN: I wonder whether the infiltrates on x-ray are more related to metastatic disease. There have not been any report of fever, hypoxia or productive cough to suggest pneumonia. Empiric antibiotics for now and a CT chest has been ordered. I spoke with the nursing staff who reported that his systolic blood pressure generally at the [facility] facility was in the 90s to low 100s. There has been no active bleeding reported. His anorexia and other general constitutional symptoms may be related to his hypercalcemia, which we will treat here. I have asked Dr. Estrada to give an opinion related to his malignancy, but as I recall, his notes from were at this point no treatment unless his performance status improved, and they were even discussing palliative care at that time. Lovenox DVT prophylaxis while he is hospitalized. Overall, his prognosis is poor. <ELECTRONICALLY SIGNED> By: Vasiliy Colunga MD 03/25/18 1028 1202 [id number] Vasiliy Colunga MD /nt
--- NOTE | ~2018-03-23 | EKG ---
[address] [address] ELECTROCARDIOGRAM REPORT Name: ROSEMARY BUNDY Room #: 451-P ADM IN M.R.#: [id number] Admission: 03/23/18 Attend Phys: Vasiliy Colunga MD Discharge: Date of : 60 Report #: [id number] THIS REPORT FOR: //name// [facility] ED Test Date: 2018-03-23 Test Time: 20:01:16 Pat Name: ROSEMARY BUNDY Department: Room: Gender: M Member Service Representative: [facility] : 1960 Requested By: Lori Delgado Order Number: [id number] MD: Dameon Shultz Measurements Intervals [place] Rate: 108 P: 63 TN: 178 QRS: 47 QRSD: 93 T: 38 QT: 327 QTc: 439 Interpretive Statements Sinus tachycardia Otherwise no significant abnormality Compared to ECG 02/23/2018 13:31:50 No significant changes Electronically Signed On 03-24-2018 8:26:48 CDT by Dameon Shultz [email or web address] <ELECTRONICALLY SIGNED> By: Dameon Shultz MD, [facility] 03/24/18 0826 00 00 Dameon Shultz MD, FACC /EPI
[2018-03-23 19:54] VITALS: BP 107/53
[2018-03-23] MEDS ORDERED: ZOFRAN ODT4 MG DISSOLVE (20:03)
[2018-03-23] MEDS ORDERED: MIRALAX17 GM PO (20:21)
[2018-03-23] MEDS ORDERED: NEURONTIN 300300 M1 PO (20:21)
[2018-03-23] MEDS ORDERED: OXYCODONE HCL 55 MG PO (20:22)
[2018-03-23] MEDS ORDERED: TYLENOL EXTRA500 MG PO (20:23)
[2018-03-23] MEDS ORDERED: LASIX 20 MG TAB20 MG PO (20:24)
[2018-03-23 20:32] LABS: HEMATOCRIT 23.9 % (42.0-52.0); HEMOGLOBIN 7.5 gm/dL (14.0-18.0); MCH 24.6 pg (26.0-34.0); MCHC 31.2 g/dL (28.0-37.0); MCV 78.8 fL (80.0-100.0); PLATELET COUNT 312 thou/uL (150-400); RBC 3.04 mil/uL (4.50-6.00); RDW 20.2 % (10.5-14.5); WBC 10.8 thou/uL (4.0-11.0)
[2018-03-23 20:45] LABS: CALCIUM 11.3 mg/dL (8.5-10.1); CREATININE 0.5 mg/dL (0.7-1.3); POTASSIUM 3.7 mmol/L (3.5-5.1)
[2018-03-23 20:50] LABS: ALBUMIN 1.3 g/dL (3.4-5.0); DIRECT BILIRUBIN 0.2 mg/dL (<0.1-0.3); MAGNESIUM 2.3 mg/dL (1.8-2.4); TOTAL BILIRUBIN 0.4 mg/dL (<0.1-1.0); TOTAL PROTEIN 6.1 g/dL (6.4-8.2)
[2018-03-23 21:01] LABS: ABSOLUTE NEUTROPHILS 9.6 thou/uL (1.4-8.2)
[2018-03-23 21:02] LABS: ANISOCYTOSIS 2+; POLYCHROMASIA SLIGHT; TEARDROPS OCCASIONAL
[2018-03-23 21:15] LABS: URINE BILIRUBIN NEGATIVE (Negative); URINE BLOOD NEGATIVE (Negative); URINE CLARITY CLEAR; URINE COLOR YELLOW; URINE GLUCOSE-RANDOM* NEGATIVE (Negative); URINE KETONES NEGATIVE (Negative); URINE LEUKOCYTES-REFLEX NEGATIVE (Negative); URINE NITRITE-REFLEX NEGATIVE (Negative); URINE PROTEIN (DIPSTICK) NEGATIVE (Negative); URINE SPECIFIC GRAVITY 1.025 (1.005-1.035)
[2018-03-23 22:47] VITALS: BP 92/50
[2018-03-23 23:30] VITALS: BP 98/47
[2018-03-24 04:50] VITALS: BP 90/44
[2018-03-24 08:19] VITALS: BP 91/53
[2018-03-24 16:12] VITALS: BP 95/56
[2018-03-24 19:40] VITALS: BP 101/59
[2018-03-25 04:23] VITALS: BP 80/48
[2018-03-25 06:01] LABS: HEMOGLOBIN 7.2 gm/dL (14.0-18.0); MCH 24.2 pg (26.0-34.0); MCHC 30.2 g/dL (28.0-37.0); RBC 2.99 mil/uL (4.50-6.00); RDW 21.1 % (10.5-14.5); WBC 11.7 thou/uL (4.0-11.0)
[2018-03-25 08:00] VITALS: BP 88/51
[2018-03-25 16:00] VITALS: BP 97/60
[2018-03-25 19:49] VITALS: BP 104/53
[2018-03-26 03:46] VITALS: BP 102/61
[2018-03-26 08:00] VITALS: BP 91/55
[2018-03-26 15:54] VITALS: BP 100/57
== END 2018-03-26 20:57 | disposition hospice, inpatient (51) | DRG 686 ==
LOC: ER 19:53 → 4W 22:09 → EROBS 22:09 → 4W 23:26
PROVIDERS: Emergency Medicine; Internal Medicine Geriatric Medicine
DX: C64.9 Malignant neoplasm of unspecified kidney, except renal pelvis (principal); E43 Unspecified severe protein-calorie malnutrition; J18.9 Pneumonia, unspecified organism; C79.51 Secondary malignant neoplasm of bone; C79.31 Secondary malignant neoplasm of brain; C78.7 Secondary malignant neoplasm of liver and intrahepatic bile duct; I82.401 Acute embolism and thrombosis of unspecified deep veins of right lower extremity; E83.52 Hypercalcemia; L89.150 Pressure ulcer of sacral region, unstageable; F41.9 Anxiety disorder, unspecified; F32.9 Major depressive disorder, single episode, unspecified; I95.9 Hypotension, unspecified; D63.8 Anemia in other chronic diseases classified elsewhere; Z68.24 Body mass index [BMI] 24.0-24.9, adult; Z79.899 Other long term (current) drug therapy
CPT/HCPCS: 10047